=== PATIENT | female | born 1935 | race Two or more races ===

== ENCOUNTER 2023-01-29 17:36 | Emergency (ER) | payer OTHER ==
[~2023-01-29] VITALS: Ht 152.4 cm; Wt 54.4 kg
--- NOTE | 2023-01-29 17:37 | NUR ---
PATIENT BIBA TO BED 11.
--- NOTE | 2023-01-29 17:38 | NUR ---
88/F BIBA FROM HOME C/O ABRASION TO FACE S/P FALL TODAY. DENIES LOC. AAO4, AMBULATORY WITH ASSISTANCE AT THIS TIME. BLEEDING CONTROLLED AT THIS TIME. PMH: PARKINSON'S DISEASE
[2023-01-29 17:39] VITALS: BP 132/90
--- NOTE | 2023-01-29 17:44 | NUR ---
Patient being evaluated by physician at bedside.
[2023-01-29] MEDS ORDERED: ACETAMINOPHEN EXTRA STRENGTH 500 MG TAB PO ONE (17:50)
--- NOTE | 2023-01-29 18:10 | NUR ---
PT BACK FROM CT
[2023-01-29] MEDS ORDERED: IBUP-2213 PO (19:10)
[2023-01-29 19:26] VITALS: BP 132/90
--- NOTE | 2023-01-29 19:27 | NUR ---
Patient discharged with v/s stable. Written and verbal after care instructions given and explained. Patient verbalized understanding. Ambulatory with steady gait. All questions addressed prior to discharge. Advised to follow up with PMD. PT LEFT WITH HER BELONGINGS.
== END 2023-01-29 19:27 | disposition home or self-care (01) ==
LOC: MED 17:36
DX: S02.2XXA Fracture of nasal bones, initial encounter for closed fracture (principal); M25.561 Pain in right knee; Z98.890 Other specified postprocedural states; W18.30XA Fall on same level, unspecified, initial encounter; Y93.89 Activity, other specified; Y92.89 Other specified places as the place of occurrence of the external cause; Y99.8 Other external cause status
CPT/HCPCS: 70450; 70486; 73562; 99284; Q0092

== ENCOUNTER 2023-08-14 15:59 | Emergency (ER) | payer OTHER ==
[~2023-08-14] VITALS: Ht 157.5 cm; Wt 54.4 kg
[~2023-08-14 15:59] MED LIST: IBUP-2213 PO
[2023-08-14 16:25] VITALS: BP 171/96; PULSE 76; RESP 18; TEMP 96.9; O2SAT 96
[2023-08-14 17:45] LABS: BASOPHILS # (AUTO) 0.1 K/uL (0.00-0.22); BASOPHILS % (AUTO) 1.1 % (0.0-2.0); EOSINOPHILS # (AUTO) 0.2 K/uL (0-0.4); EOSINOPHILS % (AUTO) 2.3 % (0.0-4.0); HEMATOCRIT 39.1 % (36-48); LYMPHOCYTES % (AUTO) 26.7 % (20.5-51.1); MEAN CORPUSCULAR HEMOGLOBIN 32 pg (27-31); MEAN CORPUSCULAR HGB CONC 33 g/dL (33-37); MEAN CORPUSCULAR VOLUME 96.2 fL (80-94); MONOCYTES # (AUTO) 0.7 K/uL (0.8-1.0); MONOCYTES % (AUTO) 9.4 % (1.7-9.3); NEUTROPHILS # (AUTO) 4.4 K/uL (1.8-7.7); NEUTROPHILS % (AUTO) 60.5 % (42.2-75.2); PLATELET COUNT (AUTO) 246 K/uL (140-450); RED BLOOD CELL COUNT(AUTO) 4.07 MIL/uL (4.20-5.40); RED CELL DISTRIBUTION WIDTH 16.7 % (11.6-13.7); WHITE BLOOD COUNT (AUTO) 7.3 K/uL (4.8-10.8)
[2023-08-14 18:00] LABS: ALANINE AMINOTRANSFERASE 19 U/L (12-78); ALBUMIN 3.4 g/dL (3.4-5.0); ALKALINE PHOSPHATASE 68 U/L (50-136); ANION GAP 10.6 (8-16); ASPARTATE AMINOTRANSFERASE 22 U/L (15-37); CALCIUM 8.8 mg/dL (8.5-10.1); CARBON DIOXIDE 27.7 mmol/L (21-32); CHLORIDE 108 mmol/L (98-107); CREATININE 0.8 mg/dL (0.6-1.3); GLUCOSE 96 mg/dL (74-106); LIPASE 467 U/L (73-393); POTASSIUM 4.3 mmol/L (3.5-5.1); SODIUM SERUM 142 mmol/L (136-145); TOTAL BILIRUBIN 0.5 mg/dL (0.0-1.0); TOTAL PROTEIN, SERUM 7.5 g/dL (6.4-8.2); UREA NITROGEN, BLOOD 19 mg/dL (7-18)
[2023-08-14 19:29] LABS: MAGNESIUM 2.2 mg/dL (1.8-2.4); PHOSPHORUS 4.1 mg/dL (2.5-4.9)
[2023-08-14] MEDS ORDERED: MORPHINE SULFATE 4 MG/ML SYR IVP ONE (19:35)
[2023-08-14] MEDS ORDERED: KETOROLAC 30 MG/ML VIAL IVP ONE (19:35)
[2023-08-14 19:48] VITALS: O2SAT 96
[2023-08-14] MEDS ORDERED: LID5T TP (20:13)
[2023-08-14] MEDS ORDERED: ACET-10509 PO (20:13)
[2023-08-14] MEDS ORDERED: IBUP-1842 PO (20:13)
== END 2023-08-14 20:47 | disposition home or self-care (01) ==
LOC: MED 15:59
DX: S20.211A Contusion of right front wall of thorax, initial encounter (principal); S30.1XXA Contusion of abdominal wall, initial encounter; R94.31 Abnormal electrocardiogram [ECG] [EKG]; W18.30XA Fall on same level, unspecified, initial encounter; Y93.89 Activity, other specified; Y92.89 Other specified places as the place of occurrence of the external cause; Y99.8 Other external cause status
CPT/HCPCS: 36415; 71260; 74177; 80053; 83690; 83735; 83880; 84100; 84484; 85025; 93005; 96374; 96375; 99285; J1885; J2270; Q9967